=== PATIENT | female | born 1955 | race Caucasian/White ===

== ENCOUNTER → 2023-11-12 19:27 | Outpatient (REF) | payer MEDICARE, SELFPAY | LOC: MRI 3T 19:27 | PROVIDERS: ATTENDING PHYSICIAN Specialist; FAMILY PHYSICIAN Nurse Practitioner Adult Health | DX: K76.9 Liver disease, unspecified (principal) | CPT/HCPCS: 74183; A9581 ==

== ENCOUNTER → 2024-06-16 06:59 | Outpatient (REF) | payer MEDICARE, SELFPAY | LOC: RAD 06:59 | PROVIDERS: ATTENDING PHYSICIAN Nurse Practitioner; FAMILY PHYSICIAN Nurse Practitioner Adult Health | DX: K74.60 Unspecified cirrhosis of liver (principal) | CPT/HCPCS: 76700 ==

== ENCOUNTER → 2024-06-27 06:19 | Day surgery (SDC) | payer MEDICARE, SELFPAY | LOC: GI 06:19 | PROVIDERS: ATTENDING PHYSICIAN Specialist | DX: K55.20 Angiodysplasia of colon without hemorrhage (principal); K57.30 Diverticulosis of large intestine without perforation or abscess without bleeding; Z86.004 Personal history of in-situ neoplasm of other and unspecified digestive organs; Z86.0101 Personal history of adenomatous and serrated colon polyps; Z98.890 Other specified postprocedural states | CPT/HCPCS: 45378 ==

== ENCOUNTER 2024-12-14 09:58 | Emergency (ER) | payer BC, SELFPAY ==
[2024-12-14 10:03] VITALS: BP 125/82
[2024-12-14 10:25] VITALS: BP 110/76
[2024-12-14 10:31] VITALS: BP 110/76; BMI 25.9
[2024-12-14 10:34] LABS: % Basophils 0.7 % (0-2); % Eosinophils 0.7 % (0-6); % Lymphocytes 16.5 % (20.5-51.1); % Monocytes 9.9 % (1.7-9.3); % Neutrophils 72.2 % (42.2-75.2); Absolute Lymphocytes 0.5 10^3/uL (1.2-3.4); Absolute Monocytes 0.3 10^3/uL (0.1-0.6); Absolute Neutrophils 2.2 10^3/uL (1.4-6.5); Hematocrit 34.7 % (37.0-47.0); Hemoglobin 11.2 g/dL (12.0-16.0); Mean Corp Hgb Conc. 32.3 g/dL (33.0-37.0); Mean Corpuscular Hgb 27.5 pg (27.0-31.0); Mean Platelet Volume 9.8 fL (7.4-10.4); Nucleated Red Blood Cells % 0 %; Platelet Count 69 10^3/uL (130-400); Red Blood Cell Count 4.08 10^6/uL (4.20-5.40); Red Cell Dist. Width 16.5 % (11.5-14.5)
[2024-12-14 10:55] LABS: ALT (SGPT) 21 U/L (0-35); AST (SGOT) 29 U/L (14-36); Albumin 4.5 g/dl (3.5-5.0); Alkaline Phosphatase 75 U/L (38-126); Blood Urea Nitrogen 15 mg/dl (7-17); Calcium 10.3 mg/dl (8.4-10.2); Carbon Dioxide 25 mmol/L (22-30); Chloride 106 mmol/L (98-107); Estimated Creatinine Clearance 65 ml/min; Glucose 101 mg/dl (70-99); Potassium 4.1 mmol/L (3.5-5.1); Sodium 140 mmol/L (135-145); Total Protein 8.1 g/dl (6.3-8.2); eGFR > 60.00
--- NOTE | 2024-12-14 10:56 | ED.GENMED ---
History of Present Illness
General
Chief Complaint: Cardiac Symptoms
Source: patient
Exam Limitations: none
Time Seen by Provider: 12/14/24 10:18
History of Present Illness
History of Present Illness:
This is 69-year-old female who presents palpitations. She woke up this morning and felt her heart palpitations. The patient denies chest pain or shortness of breath. She states it did not feel any thing like her SVT in the past. She states she
just felt like it was almost skipping beats. She states now she feels better. She did take an extra metoprolol. She has a history of cirrhosis and is on spironolactone and Lasix. She states her cirrhosis has been stable
Past History
Past History
ED Past Medical History: Arrthythmia (SVT), HTN and Other (Cirrhosis, ascites, hepatic encephalopathy, alcoholism, GI bleed, cholelithiasis); Negative Asthma, Hypercholesterolemia, NIDDM or Hypothyroidism
ED Past Surgical History: Cardiac (Had SVT ablation 01/17/17 and is on 81 mg of aspirin daily for one month. Otherwise not anticoagulated)
Social History
Tobacco: Former smoker
Alcohol: None
Drug: None
Personal:
Living: with family
Employment: Employed
Family History
Family History: Other (Noncontributory)
Phy Exam
Physical Exam
Physical Exam:
CONSTITUTIONAL Patient alert and oriented to person, place and time. Well-appearing. Vital signs reviewed.
HEAD atraumatic, normocephalic.
EYES eyelids normal to inspection, Extraocular muscles intact, Conjunctiva normal, Sclera normal.
NECK normal range of motion, Trachea midline, no jugular venous distention.
RESPIRATORY CHEST No respiratory distress noted, Chest expansion equal, Bilateral breath sounds clear.
CARDIOVASCULAR regular rate and rhythm, Heart sounds normal.
BACK normal inspection, no obvious deformities
UPPER EXTREMITY range of motion normal, Motor strength normal, no cyanosis, no edema.
LOWER EXTREMITY range of motion normal, Motor strength normal, no cyanosis, no edema.
NEURO Speech normal, No focal motor deficits, Yarelis coma scale 15, Memory normal, Cranial Nerves intact to screening exam.
SKIN skin warm, dry, and normal in color.
Course
Orders/Labs/Results
Orders:
Orders
12/14/24 09:59
ECG [Electrocardiogram (*1)] Urgent
Reason for Study: Palpitations
EKG- Treatment ONCE
12/14/24 10:27
Complete Blood Count/With Diff Urgent
Comprehensive Metabolic Panel Urgent
Magnesium Urgent
TSH Reflex To Free T4 Urgent
Abnormal Lab Results
12/14/24
10:27
WBC 3.0 L 10^3/uL
(4.8-10.8)
RBC 4.08 L 10^6/uL
(4.20-5.40)
Hgb 11.2 L g/dL
(12.0-16.0)
Hct 34.7 L %
(37.0-47.0)
MCHC 32.3 L g/dL
(33.0-37.0)
RDW 16.5 H %
(11.5-14.5)
Plt Count 69 L 10^3/uL
(130-400)
Absolute Lymphs (auto) 0.5 L 10^3/uL
(1.2-3.4)
Lymphocytes % 16.5 L %
(20.5-51.1)
Monocytes % 9.9 H %
(1.7-9.3)
Glucose 101 H mg/dl
(70-99)
Calcium 10.3 H mg/dl
(8.4-10.2)
12/14/24 10:27
12/14/24 10:27
Vital Signs
Initial and Last Documented VS:
Initial Vital Signs
Temp Pulse Resp BP Pulse Ox
98.7 F 90 16 125/82 99
12/14/24 10:03 12/14/24 10:03 12/14/24 10:03 12/14/24 10:03 12/14/24 10:03
Last Documented Vital Signs
Temp Pulse Resp BP Pulse Ox
97.6 F 74 13 110/76 96
12/14/24 10:31 12/14/24 10:31 12/14/24 10:31 12/14/24 10:31 12/14/24 10:31
MDM/Problems Addressed
Differential Diagnosis Includes:
PVCs, SVT, A-fib, PACs, VT
MDM/Problems Addressed:
Premature ventricular contractions
*Pulse Oximetry
Patient hypoxic: no
*EKG
Interpreted by ED Provider?: Yes
Interpretation: abnormal
Rate: normal
Rhythm: sinus and PVC's
Ischemia: no ischemia
*Toe Puncher Interpretation
Rate: normal
Interpretation: normal
Rhythm: sinus
*Critical Care Note
Total Time (30-74mins, 75-104mins- exclusive of procedures): Not Applicable
Data Reviewed
Source: patient
Prescriptions/Medications Considered But Not Given:
Consider beta-blockade but PVCs have resolved
Patient Management
Escalation/DeEscalation of care consider admission/obs:
Patient appears well. PVCs on initial EKG but no further on cardiac monitor. Electrolytes unremarkable. Okay for discharge outpatient follow-up
ED Attending Note
-
Portions of this chart may have been created with voice recognition software.� Occasional wrong word or��sound alike� substitutions may have occurred due to the inherent limitations of voice recognition software.
Discharge Plan
Departure
Patient Disposition: Home (Routine Discharge)
Date of Disposition: 12/14/24
Time of Disposition: 11:02
Patient with high blood pressure during this ER visit?: No
Discharge Problem:
Palpitations, Premature ventricular contractions
Instructions: Ventricular premature beats, Palpitations
Prescriptions:
No Action
furosemide 40 MG tablet
40 mg PO DAILY
lactulose 10 GM/15 ML solution
10 gm PO QPM
furosemide 40 mg tablet
20 mg PO QPM
metoprolol succinate 25 mg tablet extended release 24 hr
25 mg PO BID
spironolactone 50 mg tablet
50 mg PO QPM
spironolactone 100 mg Tablet
100 mg PO DAILY
Rx Instructions:
Pt takes 100mg in the AM and 50 mg in the evening.
Referrals:
Qi Anne CRNP [Family Provider] -
Activity Restrictions/Additional Instructions:
Please see your doctor in the next 2 to 3 days for follow-up and reevaluation. Return immediately for worsening symptoms, shortness of breath, chest pain, passing out episode, lightheadedness or any other concerns
Interventions
Interventions:
*Risk Screen - Suicide Last Done: 12/14/24 10:05
*General Assessment Last Done: 12/14/24 10:31
*Neglect/Abuse Screening Last Done: 12/14/24 10:05
*ED- Fall Risk Assessment Last Done: 12/14/24 10:31
*ED COVID-19 Vaccine History Last Done: 12/14/24 10:31
ED- Pulmonary Assessment Last Done: 12/14/24 10:31
ED- Cardiac Assessment Last Done: 12/14/24 10:31
Discharge Date and Time
Print Language: MAORI
[2024-12-14 11:00] VITALS: BP 100/66
[2024-12-14 11:32] LABS: TSH Reflex To Free T4 5.72 uIU/ml (0.47-4.68)
[2024-12-14 12:00] VITALS: BP 116/79
[2024-12-14 12:00] LABS: Free T4 0.98 ng/dl (0.78-2.19)
== END 2024-12-14 12:32 | disposition home or self-care (01) ==
LOC: EMR 09:58
PROVIDERS: EMERGENCY PHYSICIAN Emergency Medicine; FAMILY PHYSICIAN Nurse Practitioner Adult Health
DX: R00.2 Palpitations (principal); I49.3 Ventricular premature depolarization; I10 Essential (primary) hypertension; Z87.891 Personal history of nicotine dependence; K74.60 Unspecified cirrhosis of liver
CPT/HCPCS: 99284; 80053; 83735; 84439; 84443; 85025; 93005

== ENCOUNTER 2025-05-28 06:13 | Day surgery (SDC) | payer OTHER, SELFPAY | END 2025-05-28 11:35 | disposition home or self-care (01) | LOC: GI 06:13 | PROVIDERS: ATTENDING PHYSICIAN Specialist | DX: K31.7 Polyp of stomach and duodenum (principal); I85.00 Esophageal varices without bleeding; K29.60 Other gastritis without bleeding; K31.89 Other diseases of stomach and duodenum | CPT/HCPCS: 43239 ==

== ENCOUNTER 2025-07-19 09:23 | Emergency (ER) | payer OTHER, SELFPAY ==
[2025-07-19 09:30] VITALS: BP 133/80
[2025-07-19 10:57] VITALS: BP 131/89
[2025-07-19 10:58] VITALS: BMI 33.6
[2025-07-19 11:00] VITALS: BP 123/75
--- NOTE | 2025-07-19 11:03 | ED.GENMED ---
History of Present Illness
General
Chief Complaint: Heart Rate Problem
Source: patient
Exam Limitations: none
Time Seen by Provider: 07/19/25 10:55
Nursing documentation reviewed up to this point in time: agreed with
History of Present Illness
History of Present Illness:
Patient is a 69-year-old female presents to the ER for evaluation. Patient has a history of SVT in the past with ablation 8 years ago history of cirrhosis presents for palpitations. Patient that he initially started 2 days ago. She reports she
had a Sunday all day and they stopped Sunday and yesterday Sunday. Today in the middle the night she developed palpitations again she describes this as feeling like she is only skipping a beat. She is on metoprolol chronically
25 mg twice daily but however this morning all 3 of them because of the palpitations. She is currently asymptomatic she denies any associated chest pain shortness of breath. She does not use caffeine denies any over the counter medication.
Past History
Past History
ED Past Medical History: Arrthythmia (SVT), HTN and Other (Cirrhosis, ascites, hepatic encephalopathy, alcoholism, GI bleed, cholelithiasis); Negative Asthma, Hypercholesterolemia, NIDDM or Hypothyroidism
ED Past Surgical History: Cardiac (Had SVT ablation 01/17/17 and is on 81 mg of aspirin daily for one month. Otherwise not anticoagulated)
Social History
Tobacco: Former smoker
Alcohol: None
Drug: None
Personal:
Living: with family
Employment: Employed
Family History
Family History: Other (Noncontributory)
Phy Exam
General Physical Exam
General Presentation: no apparent distress
General age: appears stated age
General Skin: warm and dry
General Habitus: normal
General Mental: alert
General Hydration: appears well hydrated
Cardiovascular Exam
Cardiovascular Exam: regular rate/rhythm, no murmur and normal peripheral pulses
Pulmonary Exam
Pulmonary Exam: lungs clear and no respiratory distress
Neurological Exam
Neurological Exam: alert and oriented x3
Musculoskeletal Exam
Musculoskeletal Exam: full ROM
Skin Exam
Skin Exam: normal color and warm/dry
Psychiatric Exam
Psychiatric Exam: normal mood/affect
Course
Orders/Labs/Results
Orders:
Orders
07/19/25 09:33
Electrocardiogram (*1) Urgent
Reason for Study: Palpitations
EKG- Treatment ONCE
07/19/25 11:20
Complete Blood Count/With Diff Urgent
Comprehensive Metabolic Panel Urgent
TSH Reflex To Free T4 Urgent
Abnormal Lab Results
07/19/25
11:20
WBC 2.6 L 10^3/uL
(4.8-10.8)
RBC 3.64 L 10^6/uL
(4.20-5.40)
Hgb 10.5 L g/dL
(12.0-16.0)
Hct 31.9 L %
(37.0-47.0)
MCHC 32.9 L g/dL
(33.0-37.0)
RDW 16.1 H %
(11.5-14.5)
Plt Count 60 L 10^3/uL
(130-400)
Absolute Lymphs (auto) 0.5 L 10^3/uL
(1.2-3.4)
Lymphocytes % 20.0 L %
(20.5-51.1)
Sodium 133 L mmol/L
(135-145)
Calcium 10.3 H mg/dl
(8.4-10.2)
07/19/25 11:20
07/19/25 11:20
Vital Signs
Initial and Last Documented VS:
Initial Vital Signs
Temp Pulse Resp BP Pulse Ox
98.3 F 73 18 133/80 97
07/19/25 09:30 07/19/25 09:30 07/19/25 09:30 07/19/25 09:30 07/19/25 09:30
Last Documented Vital Signs
Temp Pulse Resp BP Pulse Ox
98.3 F 67 17 120/74 98
07/19/25 09:30 07/19/25 13:30 07/19/25 13:30 07/19/25 13:00 07/19/25 13:15
MDM/Problems Addressed
Differential Diagnosis Includes:
Not limited to arrhythmia palpitations SVT tachycardia, afib
MDM/Problems Addressed:
Is documented patient is a 69-year-old female with history of SVT cirrhosis presents to the ER for evaluation of palpitations that have been occurring off and on for the past several days. Patient is in no acute distress she is on metoprolol. She
is followed by cardiology here. No arrhythmia here in the ER patient is awake alert no acute distress she has chronically low white count and platelets this is not new however she has never seen oncology. She reports her GI specialist is aware.
She does see GI because she has a history of cirrhosis. Regarding palpitations patient no acute distress no abnormalities here in the ER no arrhythmias. TSH normal. Will DC with outpatient follow-up with cardiology. EKG shows occasional pvcs.
Will have her present dose of metoprolol. No chest pain no shortness of breath well-appearing stable for discharge home. Patient was also recommended to follow-up with hematology for further evaluation of abnormalities in her labs
Chronic conditions affecting care:
Cirrhosis,SVT in the past ( w/ ablation)
*Pulse Oximetry
SaO2: 98
Oxygen Mode of Delivery: Room air
Patient hypoxic: no
*EKG
Interpreted by ED Provider?: Yes
Heart Rate: 74
Rate: normal
Rhythm: sinus and PVC's
Ischemia: no ischemia
*Critical Care Note
Total Time (30-74mins, 75-104mins- exclusive of procedures): Not Applicable
ED Attending Note
-
Portions of this chart may have been created with voice recognition software.� Occasional wrong word or��sound alike� substitutions may have occurred due to the inherent limitations of voice recognition software.
Discharge Plan
Departure
Patient Disposition: Home (Routine Discharge)
Date of Disposition: 07/19/25
Time of Disposition: 13:33
Patient with high blood pressure during this ER visit?: No
Condition: Fair
Covid-19: Not Applicable
Discharge Problem:
Palpitations
Instructions: Palpitations (DC)
Prescriptions:
No Action
furosemide 40 MG tablet
40 mg PO DAILY
lactulose 10 GM/15 ML solution
10 gm PO QPM
furosemide 40 mg tablet
20 mg PO QPM
metoprolol succinate 25 mg tablet extended release 24 hr
25 mg PO BID
spironolactone 50 mg tablet
50 mg PO QPM
spironolactone 100 mg Tablet
100 mg PO DAILY
Rx Instructions:
Pt takes 100mg in the AM and 50 mg in the evening.
Referrals:
Aida Steel MD [Active, Hematology / Oncology]
Qi Anne CRNP [Family Provider, General]
Eirc Mcduffie DO [Active, Cardiology]
Activity Restrictions/Additional Instructions:
As discussed follow-up with your journeyman operator assistant. The journeyman operator assistant's name you see is the on-call journeyman operator assistant please call make an appointment as soon as possible. Return if any worsening of symptoms. In addition it is recommended that you follow-up
with hematology for further evaluation of your low white count low platelets though this is not new
Interventions
Interventions:
*Risk Screen - Suicide Last Done: 07/19/25 09:30
*General Assessment Last Done: 07/19/25 09:30
*Neglect/Abuse Screening Last Done: 07/19/25 09:30
*ED- Fall Risk Assessment Last Done: 07/19/25 11:23
*ED COVID-19 Vaccine History Last Done: 07/19/25 10:57
*ED Influenza Vaccine History Last Done: 07/19/25 10:57
*Nursing Disposition Last Done: 07/19/25 13:45
ED- Cardiac Assessment Last Done: 07/19/25 11:23
ED- Pulmonary Assessment Last Done: 07/19/25 11:23
Discharge Date and Time
Discharge Date/Time: 07/19/25 13:45
Print Language: TAJIK
[2025-07-19 11:31] LABS: Hematocrit 31.9 % (37.0-47.0); Hemoglobin 10.5 g/dL (12.0-16.0); Mean Corp Hgb Conc. 32.9 g/dL (33.0-37.0); Mean Corpuscular Volume 87.6 fL (81.0-99.0); Nucleated Red Blood Cells % 0 %; Red Cell Dist. Width 16.1 % (11.5-14.5)
[2025-07-19 11:40] LABS: ALT (SGPT) 26 U/L (0-35); AST (SGOT) 36 U/L (14-36); Albumin 4.3 g/dl (3.5-5.0); Alkaline Phosphatase 83 U/L (38-126); Blood Urea Nitrogen 16 mg/dl (7-17); Calcium 10.3 mg/dl (8.4-10.2); Carbon Dioxide 28 mmol/L (22-30); Chloride 103 mmol/L (98-107); Estimated Creatinine Clearance 82 ml/min; Glucose 94 mg/dl (70-99); Potassium 4.4 mmol/L (3.5-5.1); Sodium 133 mmol/L (135-145); Total Protein 8.1 g/dl (6.3-8.2); eGFR > 60.00
[2025-07-19 11:59] LABS: Platelet Count 60 10^3/uL (130-400)
[2025-07-19 12:00] VITALS: BP 119/77
[2025-07-19 13:00] VITALS: BP 120/74
== END 2025-07-19 13:45 | disposition home or self-care (01) ==
LOC: EMR 09:23
PROVIDERS: Nurse Practitioner; EMERGENCY PHYSICIAN Emergency Medicine; FAMILY PHYSICIAN Nurse Practitioner Adult Health
DX: R00.2 Palpitations (principal); I49.3 Ventricular premature depolarization; I10 Essential (primary) hypertension; K74.60 Unspecified cirrhosis of liver; Z79.82 Long term (current) use of aspirin; Z87.891 Personal history of nicotine dependence
CPT/HCPCS: 99284; 80053; 84443; 85025; 93005

== ENCOUNTER 2025-07-23 04:57 | Emergency (ER) | payer OTHER, SELFPAY ==
[2025-07-23] VITALS (7 sets, daily range): BP systolic 103–153; BP diastolic 69–85; BMI 35.2
--- NOTE | 2025-07-23 06:43 | ED.GENMED ---
History of Present Illness
General
Chief Complaint: Heart Rate Problem
Source: patient
Exam Limitations: none
Time Seen by Provider: 07/23/25 06:28
History of Present Illness
History of Present Illness:
69-year-old female with history of SVT status post ablation, controlled cirrhosis presents for reevaluation for palpitations. She was here for the same reason 4 days ago. She tried to set an appoint with cardiology and she cannot be seen until
September. She is on metoprolol 25 mg twice a day. She notes of breath and lightheadedness associated with these palpitations but denies any chest pain. She denies leg swelling or calf pain. No recent vomiting fever or diarrhea. No other
complaints at this time
Past History
Past History
ED Past Medical History: Arrthythmia (SVT), HTN and Other (Cirrhosis, ascites, hepatic encephalopathy, alcoholism, GI bleed, cholelithiasis); Negative Asthma, Hypercholesterolemia, NIDDM or Hypothyroidism
ED Past Surgical History: Cardiac (Had SVT ablation 01/17/17 and is on 81 mg of aspirin daily for one month. Otherwise not anticoagulated)
Social History
Tobacco: Former smoker
Alcohol: None
Drug: None
Personal:
Living: with family
Employment: Employed
Family History
Family History: Other (Noncontributory)
Phy Exam
Physical Exam
Physical Exam:
General: Well-appearing female no acute respiratory distress
HEENT: Normal cephalic atraumatic
Heart: Regular rate and rhythm
Lungs: Clear no wheeze
Abdomen is soft nontender
Extremities: No cyanosis
Course
Orders/Labs/Results
Orders:
Orders
07/23/25 04:58
EKG [Electrocardiogram (*1)] Urgent
Reason for Study: Palpitations
EKG- Treatment ONCE
07/23/25 06:09
CMP [Comprehensive Metabolic Panel] Urgent
Complete Blood Count/With Diff Urgent
Magnesium Urgent
Troponin I Urgent
07/23/25 09:38
Add On- LAB Routine
Tests Added?: magnesium
Abnormal Lab Results
07/23/25
06:09
WBC 2.7 L 10^3/uL
(4.8-10.8)
RBC 3.83 L 10^6/uL
(4.20-5.40)
Hgb 10.6 L g/dL
(12.0-16.0)
Hct 32.9 L %
(37.0-47.0)
MCHC 32.2 L g/dL
(33.0-37.0)
RDW 16.2 H %
(11.5-14.5)
Plt Count 63 L 10^3/uL
(130-400)
MPV 10.6 H fL
(7.4-10.4)
Absolute Lymphs (auto) 0.5 L 10^3/uL
(1.2-3.4)
Lymphocytes % 18.9 L %
(20.5-51.1)
Monocytes % 10.6 H %
(1.7-9.3)
Sodium 134 L mmol/L
(135-145)
Calcium 10.4 H mg/dl
(8.4-10.2)
07/23/25 06:09
07/23/25 06:09
Vital Signs
Initial and Last Documented VS:
Initial Vital Signs
Temp Pulse Resp BP Pulse Ox
97.8 F 67 16 153/85 98
07/23/25 05:07 07/23/25 05:07 07/23/25 05:07 07/23/25 05:07 07/23/25 05:07
Last Documented Vital Signs
Temp Pulse Resp BP Pulse Ox
97.8 F 65 12 114/71 97
07/23/25 05:07 07/23/25 11:00 07/23/25 11:00 07/23/25 11:00 07/23/25 11:00
MDM/Problems Addressed
Differential Diagnosis Includes:
Patient with palpitations. Will obtain EKG and check labs again. Recheck from visit from 4 days ago demonstrates a normal TSH.
*Pulse Oximetry
SaO2: 99
Oxygen Mode of Delivery: Room air
Patient hypoxic: no
*Critical Care Note
Total Time (30-74mins, 75-104mins- exclusive of procedures): Not Applicable
Update Note
Update Note:
Patient seen by cardiology. They will provide her with an echocardiogram and Holter as an outpatient. No indication for admission. Stable for discharge
ED Attending Note
-
Portions of this chart may have been created with voice recognition software.� Occasional wrong word or��sound alike� substitutions may have occurred due to the inherent limitations of voice recognition software.
Discharge Plan
Departure
Patient Disposition: Home (Routine Discharge)
Date of Disposition: 07/23/25
Time of Disposition: 11:18
Patient with high blood pressure during this ER visit?: No
Discharge Problem:
Palpitations
Instructions: Palpitations (DC)
Prescriptions:
No Action
furosemide 40 MG tablet
40 mg PO DAILY
lactulose 10 GM/15 ML solution
10 gm PO QPM
furosemide 40 mg tablet
20 mg PO QPM
metoprolol succinate 25 mg tablet extended release 24 hr
25 mg PO BID
spironolactone 50 mg tablet
50 mg PO QPM
spironolactone 100 mg Tablet
100 mg PO DAILY
Rx Instructions:
Pt takes 100mg in the AM and 50 mg in the evening.
Referrals:
Vic Franks MD [Active, Cardiology] - 08/26/25 11:20 am
Referral Note: Your appointment has changed. Appointment on 09/21 has been cancelled. Please call with questions
Qi Anne CRNP [Family Provider, General]
Activity Restrictions/Additional Instructions:
You will have a 5 day counselor marriage and family upon discharge from ER.
You are scheduled for an echocardiogram on 08/05/25 @ 2:00PM at the [facility] in [facility], [address]. Please call [phone] with questions.
Interventions
Interventions:
*Risk Screen - Suicide Last Done: 07/23/25 05:07
*General Assessment Last Done: 07/23/25 05:53
*Neglect/Abuse Screening Last Done: 07/23/25 05:54
*ED COVID-19 Vaccine History Last Done: 07/23/25 05:53
*ED Influenza Vaccine History Last Done: 07/23/25 05:53
[facility] Fall Risk Assessment Tool Last Done: 07/23/25 05:55
ED- Cardiac Assessment Last Done: 07/23/25 05:54
ED- Pulmonary Assessment Last Done: 07/23/25 05:50
Discharge Date and Time
Print Language: COSTA RICAN
[2025-07-23 06:50] LABS: ALT (SGPT) 24 U/L (0-35); AST (SGOT) 32 U/L (14-36); Albumin 4.2 g/dl (3.5-5.0); Alkaline Phosphatase 75 U/L (38-126); Blood Urea Nitrogen 17 mg/dl (7-17); Calcium 10.4 mg/dl (8.4-10.2); Carbon Dioxide 27 mmol/L (22-30); Chloride 103 mmol/L (98-107); Glucose 94 mg/dl (70-99); Potassium 4.2 mmol/L (3.5-5.1); Sodium 134 mmol/L (135-145); Total Protein 7.7 g/dl (6.3-8.2); eGFR > 60.00
[2025-07-23 06:51] LABS: Hematocrit 32.9 % (37.0-47.0); Hemoglobin 10.6 g/dL (12.0-16.0); Mean Corp Hgb Conc. 32.2 g/dL (33.0-37.0); Mean Corpuscular Volume 85.9 fL (81.0-99.0); Nucleated Red Blood Cells % 0 %; Platelet Count 63 10^3/uL (130-400); Red Cell Dist. Width 16.2 % (11.5-14.5)
[2025-07-23 07:03] LABS: Troponin I 0.012 ng/ml
[2025-07-23 10:09] LABS: Magnesium 2.0 mg/dl (1.6-2.3)
--- NOTE | 2025-07-23 10:17 | CON.CAR ---
Addendum entered and electronically signed by Luis Handley MD 07/23/25 12:03:
Pleasant 69-year-old woman with history of SVT and prior atrial tach ablation now with her second ER visit for palpitations.
PMH: Atrial tach ablation,, hepatitis C, reportedly cured, cirrhosis, hypertension
Outpatient meds: Metoprolol succinate 25 twice daily, spironolactone, furosemide, lactulose
Rest of history as below. Reviewed in detail and agree unless otherwise specified.
114/71, pulse 65, intermittently irregular rate and rhythm lungs are clear, no obvious murmurs, abdomen benign extremities without clubbing cyanosis or edema, pleasant, no distress
ECG: Sinus rhythm, sinus arrhythmia, rare PAC
Hemoglobin 10.6, platelets 63, BUN and creatinine are 17 and 0.7, calcium is 10.4, troponin is 0.12
TSH: Normal, magnesium pending, potassium 4.2
Telemetry: PACs, possibly with aberrant ventricular conduction
Impression:
Palpitations
PACs/PVCs versus aberrant ventricular conduction
History of slow pathway AV bethany ablation, atrial tach ablation
Hypertension
History of hepatitis C and cirrhosis
Anemia
Plan:
See below. Reviewed in detail and agree unless otherwise specified.
She has symptomatic PACs and PVCs, possibly aberrant ventricular conduction. Delaney will apply a 5-day monitor and echo will arrange for outpatient follow-up. Overall, patient reassured that likelihood of malignant arrhythmias is low.
Okay for discharge.
Original Note:
Consultation
Consultation Request
Date/Time Consultation Performed: 07/23/25
Requesting Provider: Km Mosquera PA-C
Performing Provider: Lindsay Bailey PA-C for Dr. ROLAN Handley
Reason for Consultation: palpitations
Medical History
-
Chief Complaint: palpitations
History of Present Illness:
Patient is a 69-year-old female with past medical history of hep C status posttreatment and cirrhosis, SVT status post EP study and A. tach ablation, hypertension who presents to [facility] ER for evaluation of palpitations. She reports she has done
well after her SVT ablation and has not had any recurrences. She states since the day prior to Thanks she has felt as though her heart is skipping beats, and at times feels as though it is 'constant'. She reports occasional lightheadedness
when she gets several in a row. She denies feelings of heart racing, chest pain, shortness of breath. She takes Toprol 25 mg twice daily. She denies recent changes in medications, new supplements, increase in alcohol, caffeine. Cardiology
consulted for evaluation
PMH:
SVT status post SVT ablation 2016, A. tach ablation 2017
Hypertension
Hep C status post treatment
Cirrhosis
Past Medical History
Past Medical History: Other (In HPI)
Social History
Tobacco: Former Smoker
Alcohol: Occasional
Personal:
Living: With Family
Employment: Retired
Family History
Family History: CAD and Diabetes
Allergies / Home Medications
Allergy/AdvReac Type Severity Reaction Status Date / Time
iodine (Iodine) Allergy Hives and Verified 07/23/25 05:07
wheezing
�Medication �Instructions �Recorded �Confirmed �Type
furosemide 40 mg tablet 40 mg PO DAILY Fluid 05/10/20 07/06/23 History
retention/Swelling
lactulose 10 gram/15 mL oral 10 gm PO QPM Constipation 05/26/20 07/06/23 History
solution
furosemide 40 mg tablet 20 mg PO QPM Fluid 06/20/22 07/06/23 History
retention/Swelling
metoprolol succinate 25 mg 25 mg PO BID Blood pressure 06/20/22 07/06/23 History
tablet,extended release 24 hr
spironolactone 100 mg tablet 100 mg PO DAILY Fluid 06/20/22 07/06/23 History
retention/Swelling
spironolactone 50 mg tablet 50 mg PO QPM Fluid 06/20/22 07/06/23 History
retention/Swelling
Review of Systems
-
History Source: Patient
All other systems: Negative unless noted
Physical Exam
Vital Signs
Temp Pulse Resp BP Pulse Ox
97.8 F 71 15 103/71 96
07/23/25 05:07 07/23/25 10:00 07/23/25 10:00 07/23/25 10:00 07/23/25 09:45
Lab Results
07/23/25 06:09
07/23/25 06:09
Troponin I 0.012 ng/ml 07/23/25 06:09
Physical Exam
General: No Apparent Distress and Comfortable
HEENT: Normocephalic, Anicteric and Moist Mucous Membranes
Respiratory: Clear and Non Labored Respirations
Cardiac: S1/S2 and Regular Rhythm
GI: Soft, Non Tender, Non Distended and Normal Bowel Sounds
Musculoskeletal: No Clubbing, No Cyanosis and No Edema
Skin: Warm and Dry
Neuro: AO x 3
Impression / Plan
-
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
Primary EP: Dr. Franks
Assessment:
Palpitations/skipped beats
PACs
PVCs
SVT status post SVT ablation 2016, A. tach ablation 2017
Hypertension
Hep C status post treatment
Cirrhosis
Normocytic anemia
Plan:
- Patient presents with feelings of skipped beats, which at times she states are 'constant'.
-On review of telemetry since arrival to ER, in sinus rhythm with PACs and PVCs. No pauses, runs of arrhythmia, or sustained arrhythmia noted on tele here
-History of arrhythmias requiring ablation 2016, 2017 as above. She denies heart racing
-Will plan for placement of 5-day rn cardiac cath as appear she is scheduled for outpatient MRI through GI on 07/28.
-would consider increasing toprol dose however would wait until cardiac monitoring completed
-Will arrange for outpatient echocardiogram
-K stable. Add magnesium
-Recent TSH 3.52
-Troponin negative in ER today
-She is noted to have normocytic anemia. Would defer additional workup to PCP, however this is noted to be chronic
-She is presently scheduled for follow-up appointment 09/2025, will move up appointment and change to follow-up with EP, she has seen Dr. Franks in past for ablations.
Data Reviewed
-
EKG: Tracing Personally Visualized and interpreted
Labs: Labs Reviewed by me
Old Records: Reviewed
== END 2025-07-23 11:44 | disposition home or self-care (01) ==
LOC: EMR 04:57
PROVIDERS: Emergency Medicine; EMERGENCY PHYSICIAN Emergency Medicine; FAMILY PHYSICIAN Nurse Practitioner Adult Health
DX: R00.2 Palpitations (principal); I10 Essential (primary) hypertension; I49.3 Ventricular premature depolarization; Z86.19 Personal history of other infectious and parasitic diseases; Z98.890 Other specified postprocedural states; Z87.891 Personal history of nicotine dependence; K74.60 Unspecified cirrhosis of liver; D64.9 Anemia, unspecified; Z86.79 Personal history of other diseases of the circulatory system
CPT/HCPCS: 99284; 80053; 83735; 84484; 85025; 93005

== ENCOUNTER → 2025-08-05 13:53 | Outpatient (REF) | payer OTHER, SELFPAY | LOC: HWRCS 13:53 | PROVIDERS: ATTENDING PHYSICIAN Internal Medicine Cardiovascular Disease; FAMILY PHYSICIAN Nurse Practitioner Adult Health | DX: R00.2 Palpitations (principal); I49.3 Ventricular premature depolarization; I49.1 Atrial premature depolarization | CPT/HCPCS: 93306 ==